=== PATIENT | male | born 1980 | race Two or more races ===

== ENCOUNTER 2019-12-25 08:46 | Emergency (ER) | payer OTHER ==
[2019-12-25] MEDS ORDERED: CYCLOBENZAPRINE 10 MG TABLET PO STA (09:09)
[2019-12-25] MEDS ORDERED: CHERRY SYRUP 10 ML UDC PO ONE (09:09)
[2019-12-25] MEDS ORDERED: KETOROLAC 60 MG/2 ML VIAL IM STA (09:09)
[2019-12-25] MEDS ORDERED: DEXAMETHASONE 10 MG/ML VIAL PO STA (09:09)
--- NOTE | 2019-12-25 09:40 | ED Physician Documentation ---
PD HPI BACK PAIN - Stated complaint Stated Complaint: BACK PX - Chief complaint Chief Complaint: Back Pain - History obtained from History obtained from: Patient - History of Present Illness Timing - onset: How many weeks ago (1) Timing - duration: Weeks (1) Timing - details: Gradual onset Pain level max: 7 Pain level now: 6 Location: Mid, Lower, Right, Left Quality: Pain, Spasm, Similar to prior episodes Associated symptoms: Other (occasional shooting pain or numbness in the legs). No: Fever, Weakness, Numbness, Incontinent of urine, Unable to urinate, Hematuria, Incontinent of stool Improves with: Rest Worsened by: Movement Contributing factors: Other (Back problems for over a year. He states that this started after pulling up carpet.) [place] Review of Systems Ten Systems: 10 systems reviewed and negative Constitutional: denies: Fever, Chills Nose: denies: Rhinorrhea / runny nose, Congestion GI: denies: Nausea, Vomiting, Diarrhea : denies: Dysuria, Frequency, Hesitancy, Unable to Void, Incontinent Skin: denies: Rash Musculoskeletal: denies: Neck pain Neurologic: denies: Focal weakness, Confused, Altered mental status PD PAST MEDICAL HISTORY - Past Medical History Past Medical History: No - Past Surgical History Past Surgical History: No - Present Medications Home Medications: Ambulatory Orders Medication Instructions Recorded Confirmed Cyclobenzaprine [Flexeril] 10 mg PO TID PRN #20 tablet 12/25/19 Ibuprofen [Motrin] 800 mg PO Q8H PRN #30 tablet 12/25/19 Methylprednisolone [Medrol] 4 mg PO DAILY #1 tab.ds.pk 12/25/19 - Allergies Allergies/Adverse Reactions: Allergies Allergy/AdvReac Type Severity Reaction Status Date / Time No Known Drug Allergies Allergy Verified 12/25/19 08:58 - Living Situation Living Situation: reports: With family Living Arrangement: reports: At home - Social History Does the pt smoke?: No Does the pt have substance abuse?: No - Family History Family history: reports: Non contributory - Immunizations Immunizations are current?: Yes PD ED PE NORMAL - Vitals Vital signs reviewed: Yes - General General: Alert and oriented X 3, No acute distress, Well developed/nourished - HEENT HEENT: Moist mucous membranes - Neck Neck: Supple, no meningeal sign - Cardiac Cardiac: RRR, Strong equal pulses - Respiratory Respiratory: No respiratory distress, Clear bilaterally - Abdomen Abdomen: Soft, Non tender, Non distended - Back Back: No spinal TTP (Paraspinal spasm bilateral low lumbar. No midline tenderness to palpation. No step-off or deformity.), Other (Normal bilateral lower extremity patellar and ankle jerk reflexes. Normal great toe extension bilaterally. no saddle anesthesia) - Derm Derm: Warm and dry - Extremities Extremities: No calf tenderness / cord - Neuro Neuro: Alert and oriented X 3, No motor deficit, No sensory deficit - Psych Psych: Normal mood, Normal affect Results - Vitals Vitals: Vital Signs - 24 hr 12/25/19 08:55 Temperature 36.8 C Heart Rate 66 Respiratory 16 Rate Blood Pressure 165/85 H O2 Saturation 100 Oxygen O2 Source Room air PD MEDICAL DECISION MAKING - ED course Complexity details: considered differential (No cauda equina, no spinal epidural abscess, no fracture, no aortic dissection or evidence of aneursym rupture), d/w patient, d/w family ED course: Patient with bilateral paraspinal muscle spasm, low lumbar. Likely sciatic component as well. Possible herniated disc? We will place him on steroids, anti-inflammatories and muscle relaxants. We will have him follow-up with his doctor for further care. Patient counseled regarding signs and symptoms for which I believe and urgent re-evaluation would be necessary. Patient with good understanding of and agreement to plan and is comfortable going home at this time This document was made in part using voice recognition software. While efforts are made to proofread this document, sound alike and grammatical errors may occur. Departure - Departure Disposition: 01 Home, Self Care Clinical Impression: Back pain Qualifiers: Back pain location: low back pain Chronicity: acute Back pain laterality: bilateral Sciatica presence: with sciatica Sciatica laterality: bilateral sciatica Qualified Code(s): M54.42 - Lumbago with sciatica, left side Condition: Good Instructions: ED Spasm Back No Trauma, ED Sciatica Follow-Up: RAFA SILVA MD [Primary Care Provider] - Within 1 week Prescriptions: Cyclobenzaprine [Flexeril] 10 mg PO TID PRN #20 tablet PRN Reason: Spasms Methylprednisolone [Medrol] 4 mg PO DAILY #1 tab.ds.pk Ibuprofen [Motrin] 800 mg PO Q8H PRN #30 tablet PRN Reason: PAIN &/OR FEVER Comments: Return if you worsen. Follow-up with your doctor next week for further care. Do not drive or operate heavy machinery while taking the Flexeril.
[2019-12-25 09:52] VITALS: BP 148/82
[2019-12-25] MEDS ORDERED: oxyCODONE 5 MG TABLET PO STA (09:54)
== END 2019-12-25 10:01 | disposition home or self-care (01) ==
LOC: ED 08:46
DX: M54.42 Lumbago with sciatica, left side (principal)
CPT/HCPCS: 96372; 99283; 99284; A9270

== ENCOUNTER 2020-01-13 07:16 | Outpatient (CLI) | payer OTHER ==
--- NOTE | 2020-01-13 09:51 | MRI Report ---
PROCEDURE: Lumbar Spine W/O INDICATIONS: DORSALGIA TECHNIQUE: Noncontrast sagittal T1 spin echo and T2 fast echo, sagittal STIR, axial T1 and T2 fast spin echo thr ough the lumbar spine. In cases with scoliosis, additional coronal T2 fast spin echo may be performe d. COMPARISON: None. FINDINGS: Image quality: Excellent. Alignment and Curvature: There is normal bony alignment. Bone Marrow: Marrow is of normal overall signal. No acute vertebral body compression fractures. Spinal Cord: Conus medullaris terminates at the normal level. Visualized cord demonstrates normal s ignal and size. Paraspinous Soft Tissues: No paravertebral masses. T12-L1: Normal in appearance. L1-L2: Normal in appearance. L2-L3: Normal in appearance. L3-L4: Circumferential disc bulge flattens the ventral thecal sac with no mass effect upon the seven sing L4 nerve roots. Foraminal components of the disc bulge contribute to mild bilateral neural teri inal stenosis in conjunction with mild facet hypertrophy. L4-L5: Circumferential disc bulge but the ventral thecal sac with disc material abutting and perhap s mildly displacing the descending L5 nerve roots within both subarticular zones. Femoral components of the disc bulge and facet hypertrophy combine to produce mild bilateral neural foraminal stenosis. L5-S1: Normal in appearance. IMPRESSION: Mild degenerative changes at L3-L4 and L4-L5. Reviewed by: Ronald Shepherd MD on 01/13/2020 9:49 AM PDT Approved by: Ronald Shepherd MD on 01/13/2020 9:49 AM PDT Station ID: [id number]
== END 2020-01-13 07:17 | disposition home or self-care (01) ==
LOC: DI 07:16
DX: M47.817 Spondylosis without myelopathy or radiculopathy, lumbosacral region (principal)
CPT/HCPCS: 72148